=== PATIENT | male | born 1970 | race Caucasian/White ===

== ENCOUNTER 2016-08-21 16:39 | Emergency (ER) | payer OTHER, MEDICAID ==
[~2016-08-21] VITALS: Ht 180.3 cm; Wt 85.0 kg
[~2016-08-21 16:39] MED LIST: DICL75 PO; PRED20 PO; ROBA750T3 PO
[2016-08-21 17:04] VITALS: BP 135/87; PULSE 77; RESP 16; TEMP 98.7; O2SAT 98
[2016-08-21] MEDS ORDERED: NAPR500T PO (18:59)
--- NOTE | 2016-08-21 19:01 | PD ---
HPI Chief Complaint: Musculoskeletal Complaint Time Seen by Provider: 18:59 Travel History International Travel<30 days: No Contact w/Intl Traveler<30days: No Traveled to known affect area: No History of Present Illness HPI 46-year-old male presents to the emergency department for evaluation of left hand thumb pain for 2 weeks. Denies any injury or trauma to his thumb. States that it has been a gradual worsening pain. States that there is also been some worsening swelling to the base of his thumb. States that he feels some popping in the joint and it feels stiff when he wakes up in the morning. States that it seems to improve with using it. He has not taken anything for symptoms so far. No other complaints. PFSH Past Medical History Diabetes: No Diminished Hearing: No Diverticulitis: Yes (COLON RESECTION 1999) Gastrointestinal Disorders: Yes (DIVERTICULITIS) Hypertension: Yes Immunizations Current: Yes Tetanus Vaccination: > 5 Years Influenza Vaccination: Yes Past Surgical History Abdominal Surgery: Yes (COLON RESECTION 1999, R/T DIVERTICULITIS;COLOSTOMY/ REVERSAL) Appendectomy: Yes Genitourinary Surgery: Yes (vasectomy) Other Surgery: Yes (pilonidal cyst removed, cyst removed from r knee) Social History Alcohol Use: Yes (RARELY) Tobacco Use: Yes (1/2 PPD) Substance Use: No Allergies-Medications (Allergen,Severity, Reaction): Coded Allergies: Morphine (Verified Adverse Reaction, Severe, NAUSEA, 08/21/16) Reported Meds & Prescriptions Reported Meds & Active Scripts Active Naproxen 500 Mg Tab 500 Mg PO BID 7 Days Review of Systems Except as stated in HPI: all other systems reviewed are Neg Physical Exam Narrative GENERAL: Well-nourished and well-developed pleasant patient in no acute distress who is nontoxic appearing. SKIN: Warm and dry. HEAD: Normocephalic and atraumatic. EYES: No injection, drainage, or hyphema noted. PERRLA. EOMI. ENT: No nasal drainage noted. Oropharynx is clear. NECK: Supple and the trachea is midline. CARDIOVASCULAR: Regular rate and rhythm. RESPIRATORY: Breath sounds are equal bilaterally with no accessory muscle use, wheezing, rhonchi, or crackles. EXTREMITY: Left hand first MCP joint is swollen with mild tenderness to palpation. Full range of motion in all joint. Normal opposition of thumb. Distal extremity neurovascularly intact with intact two point discrimination. NEUROLOGICAL: Awake, alert, and oriented. Normal speech and gait. Cranial nerves are grossly intact. Data Data Last Documented VS Vital Signs Date Time Temp Pulse Resp B/P Pulse Ox O2 Delivery O2 Flow Rate FiO2 08/21/16 17:04 98.7 77 16 135/87 98 [facility] Medical Decision Making Medical Screen Exam Complete: Yes Emergency Medical Condition: Yes Differential Diagnosis Osteoarthritis versus tendinitis versus trigger finger versus other Narrative Course 46-year-old male presents to the emergency department for evaluation of right hand thumb swelling and pain for 2 weeks. Patient is afebrile, vital signs are stable. There was no injury or trauma to the hand and he has full range of motion. I suspect this is inflammation secondary to arthritis. I discussed with the patient the option of x-ray imaging and he agrees that this would not yield much information at this time. Unfortunately we don't have any Velcro thumb spica splints here in the ED for comfort so I have advised the patient try to get one [id number]. We'll treat him with naproxen. He is advised follow-up with a hand specialist if his symptoms persist. Patient verbalizes understanding and agreement with treatment plan. Diagnosis Primary Impression: Inflammation of left hand joint Referrals: Hand Surgeon Patient Instructions: General Instructions, Hand Sprain (ED) Additional Instructions: If you can get a velcro thumb spica splint from the store then you can try that. Apply ice or heat to help alleviate symptoms. Take medications as prescribed with food and a full glass of water. Follow-up with a hand specialist. Return to the ED for any acute worsening of symptoms. Med/Other Pt SpecificInfo: Prescription(s) given Scripts Naproxen 500 Mg [id number] Mg PO BID 7 Days Ref 0 Prov:Micheal Lemus MD 08/21/16 Disposition: 01 DISCHARGE HOME Condition: Stable Alicia South Aug 21, 2016 19:01
== END 2016-08-21 19:28 | disposition home or self-care (01) ==
LOC: PHEFT 16:39
DX: M19.042 Primary osteoarthritis, left hand (principal); I10 Essential (primary) hypertension; F17.200 Nicotine dependence, unspecified, uncomplicated; Z87.19 Personal history of other diseases of the digestive system
CPT/HCPCS: 99283

== ENCOUNTER 2017-04-21 20:39 | Emergency (ER) | payer MEDICAID ==
[~2017-04-21] VITALS: Ht 180.3 cm; Wt 84.5 kg
[~2017-04-21 20:39] MED LIST changes: -DICL75 PO; +NAPR500T PO; -PRED20 PO; -ROBA750T3 PO
[2017-04-21 20:47] VITALS: BP 149/80; PULSE 95; RESP 18; TEMP 98.7; O2SAT 97
--- NOTE | 2017-04-21 21:52 | PD ---
HPI . Right leg pain Chief Complaint: Musculoskeletal Complaint Time Seen by Provider: 21:23 Travel History International Travel<30 days: No Contact w/Intl Traveler<30days: No Traveled to known affect area: No History of Present Illness HPI 47-year-old male presents emergency department for evaluation of right leg pain that initially started approximately 6 months ago. Patient denies any injury or trauma occurring precipitating the pain. Patient states the pain comes and goes. When the pain is at the worst he is ambulatory with a limp. Patient just recently started a new job and doesn't want the pain to affect his job. Patient states the pain is primarily in his thigh and hamstring region. Patient states the pain has intermittently shot down the posterior aspect of his leg however today that is not how the pain is presenting. Patient has full range of motion in his right leg. However he does state that it is painful with movement. Patient denies any fevers, chills, chest pain, shortness breath , dysuria, hematuria. Patient has a history of any IV drug user but the last time he used his in 2008. PFSH Past Medical History Diabetes: No Diminished Hearing: No Diverticulitis: Yes (COLON RESECTION 1999) Gastrointestinal Disorders: Yes (DIVERTICULITIS) Hypertension: Yes Immunizations Current: Yes Past Surgical History Abdominal Surgery: Yes (COLON RESECTION 1999, R/T DIVERTICULITIS;COLOSTOMY/ REVERSAL) Appendectomy: Yes Genitourinary Surgery: Yes (vasectomy) Other Surgery: Yes (pilonidal cyst removed, cyst removed from r knee) Social History Alcohol Use: Yes (RARELY) Tobacco Use: Yes (1/2 PPD) Substance Use: No Allergies-Medications (Allergen,Severity, Reaction): Coded Allergies: morphine (Unverified Adverse Reaction, Severe, NAUSEA, 04/21/17) Reported Meds & Prescriptions Reported Meds & Active Scripts Active No Active Prescriptions or Reported Medications Review of Systems Except as stated in HPI: all other systems reviewed are Neg Physical Exam Narrative GENERAL: Well-nourished, well-developed 47-year-old male patient in no acute distress. Nontoxic appearing. SKIN: Focused skin assessment warm/dry. HEAD: Normocephalic. Atraumatic. EYES: No scleral icterus. No injection or drainage. NECK: Supple, trachea midline. No JVD or lymphadenopathy. CARDIOVASCULAR: Regular rate and rhythm without murmurs, gallops, or rubs. Pedal pulses +2 bilaterally. RESPIRATORY: Breath sounds equal bilaterally. No accessory muscle use. GASTROINTESTINAL: Abdomen soft, non-tender, nondistended. MUSCULOSKELETAL: Full range of motion in right lower extremity. No obvious deformities, erythema, cyanosis, or edema. BACK: Nontender without obvious deformity. No CVA tenderness. Data Data Last Documented VS Vital Signs Date Time Temp Pulse Resp B/P (MAP) Pulse Ox O2 Delivery O2 Flow Rate FiO2 04/21/17 20:47 98.7 95 18 149/80 (103) 97 Orders Orders Ed Discharge Order (04/21/17 21:52) Ketorolac Inj (Toradol Inj) (04/21/17 22:00) MDM Medical Decision Making Medical Screen Exam Complete: Yes Emergency Medical Condition: Yes Differential Diagnosis Differential diagnoses include but are not limited to ligament injury, tendon injury, contusion, sciatica, muscle strain, muscle sprain, DVT Narrative Course 47-year-old male patient presents emergency department for evaluation of right leg pain 6 months. Patient has full range of motion in right lower external knee. The right leg is neurovascularly intact. Patient has no history of blood clots, malignancies in the leg is not swollen or erythematous. My suspicion for a DVT is exceedingly low. Based on patient's symptoms, clinical presentation, vital sign review and physical exam it is not necessary to admit the patient to the hospital or keep the patient in the emergency department for further evaluation. Patient will be given an IM injection of Toradol and discharged home with description for prednisone and instructions to follow-up with his primary care and use heating pads and ice to the area to help manage the pain. Diagnosis Primary Impression: Right leg pain Patient Instructions: General Instructions, Muscle Strain (ED) Additional Instructions: Please return to emergency department if your symptoms return or worsen. Follow up with your primary care provider. May use [id number] Motrin as stated for pain and inflammation. May use heating pads and ice packs to area for pain and inflammation. Scripts Prednisone (Prednisone) 20 Mg Tab 40 MG PO DIRECTED for 3 Days, TAB 0 Refills Prov: MagalieAlice BOCANEGRA 04/21/17 Disposition: 01 DISCHARGE HOME Condition: Stable Alice Mejias Apr 21, 2017 21:52
[2017-04-21] MEDS ORDERED: KETOROLAC TROMETHAMINE 60 MG/2 ML (IM) VIAL IM ONE (22:00)
[2017-04-21] MEDS ORDERED: PRED20 PO (22:06)
== END 2017-04-21 21:56 | disposition home or self-care (01) ==
LOC: PHEFT 20:39
DX: M79.604 Pain in right leg (principal); F17.210 Nicotine dependence, cigarettes, uncomplicated
CPT/HCPCS: 96372; 99284; J1885

== ENCOUNTER 2017-08-10 17:20 | Emergency (ER) | payer SELFPAY ==
[~2017-08-10] VITALS: Ht 180.3 cm; Wt 84.1 kg
[~2017-08-10 17:20] MED LIST changes: -NAPR500T PO; +PRED20 PO
[2017-08-10 17:24] VITALS: BP 143/89; PULSE 80; RESP 16; TEMP 98; O2SAT 99
== END 2017-08-10 19:02 | disposition left against medical advice (07) ==
LOC: PHED 17:20
DX: M79.604 Pain in right leg (principal)
CPT/HCPCS: 99281